=== PATIENT | male | born 1960 | race Caucasian/White ===

== ENCOUNTER 2017-02-05 23:37 | Emergency (ER) | payer OTHER ==
[2017-02-05 23:54] VITALS: RESP 16
[2017-02-06] MEDS ORDERED: Bacitracin 500 Units/gm Oint Foilpak UD TOP ONE (00:23)
[2017-02-06] MEDS ORDERED: Tetanus/Diphtheria Toxoids 0.5 ml Syringe IM ONE (00:27)
[2017-02-06] MEDS ORDERED: Bacitracin 500 Units/gm Oint Foilpak UD ONE (00:27)
--- NOTE | 2017-02-06 01:52 | C.PDOC ---
History Of Present Illness Patient is a 56 year old male who presents to the ER with a complaint of an abrasion to his left hand and elbow pain. [place] he [place] and landed with his left hand out stretched. Denies hitting head , LOC, or any other injury. - HPI Time Seen by Provider: 02/06/17 00:17 Chief Complaint (Nursing): Upper Extremity Problem/Injury History Per: Patient History/Exam Limitations: no limitations Onset/Duration Of Symptoms: Hrs Location Of Injury: Left: Elbow (Pain), Hand (Abrasion) - Fall Fall:Prior To Injury: Tripped (Railroad) Past Medical History Reviewed: Historical Data, Nursing Documentation, Vital Signs Vital Signs: Last Vital Signs Temp 98.3 F 02/05/17 23:51 Pulse 88 02/05/17 23:51 Resp 16 02/05/17 23:51 BP 124/81 02/05/17 23:51 Pulse Ox 96 02/06/17 02:18 Family History: States: Unknown Family Hx - Social History Hx Alcohol Use: Yes Hx Substance Use: No - Immunization History Hx Tetanus Toxoid Vaccination: No Hx Influenza Vaccination: No Hx Pneumococcal Vaccination: No Review Of Systems Musculoskeletal: Positive for: Arm Pain (Left elbow), Hand Pain (Left hand abrasion) Neurological: Negative for: Weakness, Dizziness Physical Exam - Physical Exam Appears: Well, Non-toxic Skin: Normal Color, Warm, Dry Head: Atraumatic, Normacephalic Extremity: Tenderness (Left elbow), Capillary Refill (Normal), Swelling (Left elbow), Other (Difficulty extending, worsened with pronation.) Neurological/Psych: Oriented x3, Normal Speech, Normal Cognition ED Course And Treatment O2 Sat by Pulse Oximetry: 96 (Room air) Pulse Ox Interpretation: Normal - Other Rad elbow left X-Ray: Interpreted by Me, Viewed By Me Interpretation: left radial head fx noted. Progress Note: Tetanus IM, bacitracin, and ibuprofen administered. Left elbow x- ray ordered. Arm sling applied to left arm. Disposition Counseled Patient/Family Regarding: Diagnosis, Need For Followup - Disposition Referrals: Vasquez Anaya MD [Staff Provider] - Disposition: HOME/ ROUTINE Disposition Time: 02:14 Condition: STABLE Additional Instructions: Wear sling for comfort. Follow up with orthopediist. Motrin or Tylenol for pain Instructions: Elbow Fracture in Adults (ED) Forms: General Discharge Instructions, Work Excuse - Clinical Impression Clinical Impression: Elbow fracture, left - Scribe Statement The provider has reviewed the documentation as recorded by the Scribe Mcihi Castañeda All medical record entries made by the Scribe were at my direction and personally dictated by me. I have reviewed the chart and agree that the record accurately reflects my personal performance of the history, physical exam, medical decision making, and the department course for this patient. I have also personally directed, reviewed, and agree with the discharge instructions and disposition.
[2017-02-06 02:20] VITALS: BP 131/78; PULSE 73; TEMP 97.7; O2SAT 97
--- NOTE | 2017-02-06 08:17 | RAD ---
PROCEDURE: Radiographs of the left elbow. HISTORY: pain COMPARISON: No prior. FINDINGS: BONES: A mildly comminuted radial head fracture -intra articular - is present. JOINTS: Normal. No osteoarthritis. SOFT TISSUES: Normal. JOINT EFFUSION: Limited assessment for - oblique rather than true lateral view OTHER FINDINGS: None IMPRESSION: Mildly comminuted radial head fracture -intraarticular
== END 2017-02-06 02:20 | disposition home or self-care (01) ==
LOC: C.ER 23:37
DX: S52.122A Displaced fracture of head of left radius, initial encounter for closed fracture (principal); S60.512A Abrasion of left hand, initial encounter; W01.0XXA Fall on same level from slipping, tripping and stumbling without subsequent striking against object, initial encounter; Y92.89 Other specified places as the place of occurrence of the external cause; Y99.0 Civilian activity done for income or pay